=== PATIENT | male | born 1950 | race Native Hawaiian/Other Pacific Islander ===

== ENCOUNTER 2018-03-26 02:30 | Emergency (ER) | payer OTHER ==
[~2018-03-26] VITALS: Ht 152.4 cm; Wt 77.1 kg
[~2018-03-26 02:30] MED LIST: ALEVE220 MG OR; COUMADIN 2 MG TA2 M1; COUMADIN 5 MG TA5 M1; DESYREL100 MG OR; KLOR-CON 1010 MEQ OR; NORVASC10 MG OR; PERCOCET 10-321 EACH OR; STOOL SOFTENER240 MG OR; ZOLOFT 50 MG TA50 M1 OR
[2018-03-26 02:46] LABS: ABSOLUTE NEUTROPHILS 4.3 thou/uL (1.4-8.2); BASOPHILS 0.6 % (0.0-2.0); EOSINOPHILS 0.6 % (0.0-3.0); HEMATOCRIT 44.9 % (42.0-52.0); HEMOGLOBIN 15.5 gm/dL (14.0-18.0); LYMPHOCYTES 43.8 % (24.0-44.0); MCH 34.8 pg (26.0-34.0); MCHC 34.5 g/dL (28.0-37.0); MCV 100.8 fL (80.0-100.0); MONOCYTES 10.2 % (1.0-8.0); PLATELET COUNT 219 thou/uL (150-400); POLYS 44.8 % (36.0-66.0); RBC 4.46 mil/uL (4.50-6.00); RDW 13.4 % (10.5-14.5); WBC 9.5 thou/uL (4.0-11.0)
[2018-03-26] MEDS ORDERED: TYLENOL PM EX-1 EACH PO (02:57)
[2018-03-26 03:07] LABS: URINE BILIRUBIN NEGATIVE (Negative); URINE BLOOD NEGATIVE (Negative); URINE CLARITY CLEAR; URINE COLOR YELLOW; URINE GLUCOSE-RANDOM* NEGATIVE (Negative); URINE KETONES NEGATIVE (Negative); URINE LEUKOCYTES-REFLEX NEGATIVE (Negative); URINE NITRITE-REFLEX NEGATIVE (Negative); URINE PROTEIN (DIPSTICK) NEGATIVE (Negative); URINE UROBILINOGEN 0.2 E.U./dl (0.2-1.0)
[2018-03-26 03:21] LABS: AMP/METHAMP Negative (Negative); BARBITURATES Negative (Negative); BENZODIAZEPINES Negative (Negative); COCAINE Negative (Negative); METHADONE Negative (Negative); OPIATES POSITIVE (Negative); PCP Negative (Negative)
[2018-03-26 04:17] LABS: ANION GAP 11 mmol/L (7-16); BUN 6 mg/dL (7-18); CALCIUM 7.9 mg/dL (8.5-10.1); CHLORIDE 109 mmol/L (98-107); CO2 25 mmol/L (21-32); CREATININE 0.6 mg/dL (0.7-1.3); GLUCOSE 114 mg/dL (74-106); POTASSIUM 3.6 mmol/L (3.5-5.1); SODIUM 145 mmol/L (136-145)
[2018-03-26 04:26] LABS: ALBUMIN 3.5 g/dL (3.4-5.0); LIPASE 292 U/L (73-393); MAGNESIUM 1.8 mg/dL (1.8-2.4); SGOT 32 U/L (15-37); SGPT 31 U/L (30-65); TOTAL BILIRUBIN 0.3 mg/dL (<0.1-1.0); TOTAL PROTEIN 6.8 g/dL (6.4-8.2); TROPONIN-I <0.06 ng/mL (<0.06)
[2018-03-26 06:45] VITALS: BP 139/76
--- NOTE | 2018-03-26 07:37 | EKG ---
[address] [address] ELECTROCARDIOGRAM REPORT Name: SHIRIN VILLEGAS Room #: [facility]#: [id number] ������������������ Admission: 03/26/18 ������������������ Attend Phys: Discharge: 03/26/18 ������������������ Date of : 50 Report #: [id number] ����������������������������������������������������������������� [id number] THIS REPORT FOR: //name// [facility] ED Test Date: 2018-03-26 Test Time: 02:39:49 Pat Name: SHIRIN VILLEGAS Department: Room: Gender: M Credit Rating Checker: ... : 1950 Requested By: Zeyad Lazcano Order Number: [id number] MD: Pancho Barrow Measurements Intervals [place] Rate: 99 P: 49 PA: 130 QRS: 30 QRSD: 106 T: 21 QT: 343 QTc: 441 Interpretive Statements Sinus rhythm Normal tracing Compared to ECG 11/05/2009 11:26:21 Sinus bradycardia no longer present Electronically Signed On 03-26-2018 7:37:43 RHEOLOGIST by Pancho Barrow [email or web address] ��������������������������������������������� <ELECTRONICALLY SIGNED> ���������������������������������������� By: Pancho Barrow MD, [facility] ��������������������������������������������� 03/26/18 [id number] Pancho Barrow MD, FAC /EPI
== END 2018-03-26 06:47 | disposition home or self-care (01) ==
LOC: ER 02:30
PROVIDERS: Emergency Medicine
DX: F10.129 Alcohol abuse with intoxication, unspecified (principal); F17.210 Nicotine dependence, cigarettes, uncomplicated; F17.200 Nicotine dependence, unspecified, uncomplicated; I10 Essential (primary) hypertension; Z87.442 Personal history of urinary calculi; Y90.0 Blood alcohol level of less than 20 mg/100 ml

== ENCOUNTER 2020-07-05 08:00 | Emergency (ER) | payer OTHER ==
[~2020-07-05] VITALS: Ht 175.3 cm; Wt 63.5 kg
[~2020-07-05 08:00] MED LIST changes: +TYLENOL PM EX-1 EACH PO
[2020-07-05 08:30] LABS: ABSOLUTE NEUTROPHILS 12.4 thou/uL (1.4-8.2); BASOPHILS 0.2 % (0.0-2.0); EOSINOPHILS 0.1 % (0.0-3.0); HEMATOCRIT 41.1 % (42.0-52.0); HEMOGLOBIN 14.5 gm/dL (14.0-18.0); LYMPHOCYTES 8.4 % (24.0-44.0); MCH 35.8 pg (26.0-34.0); MCHC 35.2 g/dL (28.0-37.0); MCV 101.9 fL (80.0-100.0); MONOCYTES 9.4 % (1.0-8.0); PLATELET COUNT 223 thou/uL (150-400); POLYS 81.9 % (36.0-66.0); RBC 4.04 mil/uL (4.50-6.00); RDW 13.4 % (10.5-14.5); WBC 15.1 thou/uL (4.0-11.0)
[2020-07-05 08:37] LABS: CALCIUM 8.9 mg/dL (8.5-10.1); CREATININE 0.8 mg/dL (0.7-1.3); POTASSIUM 3.7 mmol/L (3.5-5.1)
[2020-07-05 08:53] LABS: ALBUMIN 3.5 g/dL (3.4-5.0); TOTAL BILIRUBIN 0.6 mg/dL (0.2-1.0)
[2020-07-05 09:48] LABS: URINE BILIRUBIN NEGATIVE (Negative); URINE BLOOD 1+ (Negative); URINE CLARITY CLOUDY; URINE COLOR YELLOW; URINE GLUCOSE-RANDOM* NEGATIVE (Negative); URINE KETONES NEGATIVE (Negative); URINE PROTEIN (DIPSTICK) TRACE (Negative); URINE UROBILINOGEN 0.2 E.U./dl (0.2-1.0)
[2020-07-05 09:49] LABS: URINE LEUKOCYTES-REFLEX 1+ (Negative); URINE NITRITE-REFLEX POSITIVE (Negative)
[2020-07-05 10:02] LABS: BACTERIA-REFLEX >30 Many /HPF (None Seen); CASTS None Seen /LPF (None Seen); CRYSTALS None Seen /LPF (None Seen); SQUAMOUS None Seen /LPF (0-3); URINE RBC 1-2 Rare /HPF (NONE SEEN)
[2020-07-05] MEDS ORDERED: NORCO5 PO (10:23)
[2020-07-05] MEDS ORDERED: LEVAQUIN 500 M500 MG PO (10:23)
[2020-07-05 10:39] VITALS: BP 174/62
== END 2020-07-05 10:40 | disposition home or self-care (01) ==
LOC: ER 08:00
PROVIDERS: Emergency Medicine
DX: N45.1 Epididymitis (principal); N39.0 Urinary tract infection, site not specified; F17.210 Nicotine dependence, cigarettes, uncomplicated; I10 Essential (primary) hypertension